=== PATIENT | female | born 1980 | race Caucasian/White ===

== ENCOUNTER 2018-07-16 12:20 | Emergency (ER) | payer BC ==
[2018-07-16] MEDS ORDERED: Zofran 4 MG/2 ML VIAL IV ONE (12:47)
[2018-07-16] MEDS ORDERED: TORAdol 30 mg Injection IV ONE (12:47)
[2018-07-16] MEDS ORDERED: Sodium Chloride 0.9% 1000 ML 1,000 ML IV STA (12:47)
--- NOTE | 2018-07-16 12:55 | ERPHSYRPT ---
- History of Present Illness Time Seen by Provider: 07/16/18 12:37 Source: patient Exam Limitations: no limitations Physician History: 38 y/o obese female with history of fibromyalgia comes to the ER with complaints of occipital headache for the past 6 days. Pt was seen at [facility] and was sent home on motrin and flexeril with no relief. Pt describes the pain as stabbing, constant, 8/10, with radiation down neck and not relieved by motrin. Pt admits to having neck stiffness but denies any fever, chills, blurry vision or double vision, but does admits to photophobia. Pt has also been having occasional episodes of nausea and vomiting. Pt also admits to occasional chest pain. Timing/Duration: day(s) Quality: stabbing Head Pain Location: occipital Severity of Pain-Max: moderate Severity of Pain-Current: moderate Recent Head Trauma: no recent headache/trauma Associated Symptoms: dizziness, nausea/vomiting, neck pain, sensitive to light Previous symptoms: no prior history Allergies/Adverse Reactions: codeine Allergy (Verified 07/16/18 13:07) Home Medications: Cyclobenzaprine HCl 10 mg [Cyclobenzaprine 10 MG] 10 mg PO BID 07/16/18 [ History] Duloxetine HCl 60 mg PO DAILY 07/16/18 [History] Meloxicam 15 mg [Meloxicam 15 MG] 15 mg PO BID 07/16/18 [History] Omeprazole 20 MG [Prilosec 20 mg] 20 mg PO DAILY 07/16/18 [History] Ondansetron ODT 4 MG [Zofran Odt 4 mg] 4 mg PO Q6HPRN PRN 07/16/18 [ History] - Review of Systems Constitutional: No Fever, No Chills Eyes: Photophobia, Vision Changes Ears, Nose, & Throat: No Symptoms Respiratory: No Cough, No Dyspnea Cardiac: Chest Pain, No Edema, No Syncope Abdominal/Gastrointestinal: Nausea, Vomiting, No Abdominal Pain, No Diarrhea Genitourinary Symptoms: No Dysuria Musculoskeletal: No Back Pain, No Neck Pain Skin: No Rash Neurological: Dizziness, Headache, No Focal Weakness, No Sensory Changes Psychological: No Symptoms Endocrine: No Symptoms All Other Systems: Reviewed and Negative - Female History Hx Now: No - Nursing Vital Signs Nursing Vital Signs: Initial Vital Signs Pulse Rate 78 07/16/18 12:21 Respiratory Rate 20 07/16/18 12:21 Blood Pressure 148/86 07/16/18 12:21 O2 Sat by Pulse Oximetry 98 07/16/18 12:21 Pain Scale Pain Intensity 7 - Physical Exam General Appearance: mild distress, obese Eye Exam: photophobia Ears, Nose, Throat Exam: normal ENT inspection, moist mucous membranes Neck Exam: supple, full range of motion, midline tenderness, No non-tender, No meningismus Respiratory Exam: normal breath sounds, lungs clear Cardiovascular Exam: regular rate/rhythm, normal heart sounds Gastrointestinal/Abdominal Exam: soft, No tenderness, No distention Back Exam: normal inspection, normal range of motion Extremity Exam: normal inspection, normal range of motion Mental Status Exam: alert, oriented x 3, cooperative outpatient coding specialist Exam: normal hearing, normal speech, PERRL, No facial droop Coordination/Gait Exam: normal finger to nose, normal gait, normal cerebellar function Motor/Sensory Exam: no motor deficit, no sensory deficit Skin Exam: normal color, warm, dry, No rash SpO2: 98 Oxygen Delivery: Room Air - Course Nursing assessment & vital signs reviewed: Yes EKG Interpreted by Me: RATE, NORMAL AXIS, NORMAL INTERVALS, NORMAL QRS, NORMAL ST-T Ordered Tests: Active Orders 24 hr Category Date Time Status EKG-ER Only STAT Care 07/16/18 12:49 Active IV Insertion STAT Care 07/16/18 12:47 Active HEAD WITHOUT CONTRAST [CT] Stat Exams 07/16/18 12:48 Taken CBC W DIFF Stat Lab 07/16/18 12:55 Completed CMP Stat Lab 07/16/18 12:55 Completed CULTURE,URINE Stat Lab 07/16/18 13:03 Received Erythrocyte Sedimentation Rate Stat Lab 07/16/18 12:55 Completed HCG QUALITATIVE,SERUM Stat Lab 07/16/18 12:55 Completed UA W/ MICROSCOPIC Stat Lab 07/16/18 13:03 Completed Medication Summary Discontinued Medications Generic Name Dose Route Start Last Admin Trade Name Freq PRN Reason Stop Dose Admin Sodium Chloride 1,000 mls @ 999 mls/hr 07/16/18 12:47 07/16/18 13:16 Sodium Chloride 0.9% 1000 Ml IV 07/16/18 13:47 999 mls/hr .Q1H1M STA Administration Sodium Chloride Confirm 07/16/18 13:12 Sodium Chloride 0.9% 1000 Ml Administered 07/16/18 13:13 Dose 1,000 mls @ ud .ROUTE .STK-MED ONE Ketorolac Tromethamine 30 mg 07/16/18 12:47 07/16/18 13:16 Toradol 30 Mg Injection IV 07/16/18 12:48 30 mg STAT ONE Administration Ketorolac Tromethamine Confirm 07/16/18 13:12 Toradol 30 Mg Injection Administered 07/16/18 13:13 Dose 30 mg .ROUTE .STK-MED ONE Morphine Sulfate 4 mg 07/16/18 14:22 07/16/18 14:25 Morphine Sulfate 4 Mg Inj IV 07/16/18 14:23 4 mg STAT ONE Administration Morphine Sulfate Confirm 07/16/18 14:24 Morphine Sulfate 4 Mg Inj Administered 07/16/18 14:25 Dose 4 mg .ROUTE .STK-MED ONE Ondansetron HCl 4 mg 07/16/18 12:47 07/16/18 13:16 Zofran 4 Mg/2 Ml Vial IV 07/16/18 12:48 4 mg STAT ONE Administration Ondansetron HCl Confirm 07/16/18 13:12 Zofran 4 Mg/2 Ml Vial Administered 07/16/18 13:13 Dose 4 mg .ROUTE .STK-MED ONE Promethazine HCl 12.5 mg 07/16/18 14:22 07/16/18 14:26 Phenergan 25 Mg Inj IV 07/16/18 14:23 12.5 mg STAT ONE Administration Promethazine HCl Confirm 07/16/18 14:24 Phenergan 25 Mg Inj Administered 07/16/18 14:25 Dose 25 mg .ROUTE .STK-MED ONE Sumatriptan Succinate 6 mg 07/16/18 14:54 07/16/18 15:03 Imitrex 6 Mg/0.5 Ml SQ 07/16/18 14:55 6 mg STAT STA Administration Sumatriptan Succinate Confirm 07/16/18 15:02 Imitrex 6 Mg/0.5 Ml Administered 07/16/18 15:03 Dose 6 mg SQ .STK-MED ONE Lab/Rad Data: Laboratory Result Diagrams 07/16/18 12:55 07/16/18 12:55 Laboratory Results 07/16/18 07/16/18 07/16/18 Range/Units 13:03 12:55 12:55 WBC (4.0-10.5) K/mm3 RBC (4.1-5.4) M/mm3 Hgb (12.0-16.0) gm/dl Hct (35-47) % MCV (78-100) fl MCH (26-32) pg MCHC (32-36) g/dl RDW (11.5-14.0) % Plt Count (150-450) K/mm3 MPV (6-9.5) fl Gran % (36.0-66.0) % Eos # (Auto) (0-0.5) Absolute Lymphs (auto) (1.0-4.6) Absolute Monos (auto) (0.0-1.3) Lymphocytes % (24.0-44.0) % Monocytes % (0.0-12.0) % Eosinophils % (0.00-5.0) % Basophils % (0.0-0.4) % Absolute Granulocytes (1.4-6.9) Basophils # (0-0.4) ESR (0-20) mm/hr Sodium 140 (137-145) mmol/L Potassium 3.9 (3.5-5.1) mmol/L Chloride 104 (98-107) mmol/L Carbon Dioxide 27 (22-30) mmol/L Anion Gap 13.5 (5-15) MEQ/L BUN 16 (7-17) mg/dL Creatinine 0.74 (0.52-1.04) mg/dL Estimated GFR > 60.0 ML/MIN Glucose 97 (74-106) mg/dL Calcium 9.2 (8.4-10.2) mg/dL Total Bilirubin 0.60 (0.2-1.3) mg/dL AST 40 H (14-36) U/L ALT 60 H (0-35) U/L Alkaline Phosphatase 85 (38-126) U/L Serum Total Protein 7.8 (6.3-8.2) g/dL Albumin 4.6 (3.5-5.0) g/dL Serum , Qual NEGATIVE (Negative) Ur Collection Type VOID Urine Color YELLOW (YELLOW) Urine Appearance CLEAR (CLEAR) Urine pH 5.0 (5-6) Ur Specific [place] 1.015 (1.005-1.025) Urine Protein NEGATIVE (Negative) Urine Ketones NEGATIVE (NEGATIVE) Urine Blood 50 (0-5) James/ul Urine Nitrite NEGATIVE (NEGATIVE) Urine Bilirubin NEGATIVE (NEGATIVE) Urine Urobilinogen NORMAL (0-1) mg/dL Ur Leukocyte Esterase 2+ (NEGATIVE) Urine Microscopic RBC 0-2 (0-2) /HPF Urine Microscopic WBC 10-15 (0-5) /HPF Ur Epithelial Cells FEW (FEW) /HPF Urine Bacteria FEW (NEGATIVE) /HPF Urine Culture Reflexed YES (NO) Urine Glucose NEGATIVE (NEGATIVE) mg/dL Specimen Received 07/16/18 1308 07/16/18 Range/Units 12:55 WBC 10.9 H (4.0-10.5) K/mm3 RBC 4.52 (4.1-5.4) M/mm3 Hgb 14.3 (12.0-16.0) gm/dl Hct 42.5 (35-47) % MCV 94.0 (78-100) fl MCH 31.6 (26-32) pg MCHC 33.6 (32-36) g/dl RDW 13.5 (11.5-14.0) % Plt Count 271 (150-450) K/mm3 MPV 9.9 H (6-9.5) fl Gran % 59.3 (36.0-66.0) % Eos # (Auto) 0.20 (0-0.5) Absolute Lymphs (auto) 3.44 (1.0-4.6) Absolute Monos (auto) 0.79 (0.0-1.3) Lymphocytes % 31.4 (24.0-44.0) % Monocytes % 7.2 (0.0-12.0) % Eosinophils % 1.8 (0.00-5.0) % Basophils % 0.3 (0.0-0.4) % Absolute Granulocytes 6.48 (1.4-6.9) Basophils # 0.03 (0-0.4) ESR 18 (0-20) mm/hr Sodium (137-145) mmol/L Potassium (3.5-5.1) mmol/L Chloride (98-107) mmol/L Carbon Dioxide (22-30) mmol/L Anion Gap (5-15) MEQ/L BUN (7-17) mg/dL Creatinine (0.52-1.04) mg/dL Estimated GFR ML/MIN Glucose (74-106) mg/dL Calcium (8.4-10.2) mg/dL Total Bilirubin (0.2-1.3) mg/dL AST (14-36) U/L ALT (0-35) U/L Alkaline Phosphatase (38-126) U/L Serum Total Protein (6.3-8.2) g/dL Albumin (3.5-5.0) g/dL Serum , Qual (Negative) Ur Collection Type Urine Color (YELLOW) Urine Appearance (CLEAR) Urine pH (5-6) Ur Specific [place] (1.005-1.025) Urine Protein (Negative) Urine Ketones (NEGATIVE) Urine Blood (0-5) James/ul Urine Nitrite (NEGATIVE) Urine Bilirubin (NEGATIVE) Urine Urobilinogen (0-1) mg/dL Ur Leukocyte Esterase (NEGATIVE) Urine Microscopic RBC (0-2) /HPF Urine Microscopic WBC (0-5) /HPF Ur Epithelial Cells (FEW) /HPF Urine Bacteria (NEGATIVE) /HPF Urine Culture Reflexed (NO) Urine Glucose (NEGATIVE) mg/dL Specimen Received - Progress Progress: improved Progress Note: 07/16/18 15:[address] scan head does not show any acute findings. The labs are within normal limits. The patient has no relief after receiving toradol, minimal relief after morphine and some more relief after receiving imitrex. The patient will be sent home on percocet and will be referred to neurology. - Departure Time of Disposition: 15:36 Departure Disposition: Home Clinical Impression: Headache Qualifiers: Headache type: unspecified Headache chronicity pattern: acute headache Intractability: not intractable Qualified Code(s): R51 - Headache Condition: Stable Critical Care Time: No Referrals: MORIAH LESTER DO [NON-STAFF PHY W/O PRIVILEGES] - Instructions: Headache, Adult (DC) Additional Instructions: Return to the ER if you should continue to have headaches, neck pain, nausea, vomiting, fever or chills. Follow up with Dr Anaya in the next few days. Prescriptions: Ondansetron [Zofran Odt] 4 mg PO QID PRN #16 tab.rapdis PRN Reason: Nausea/Vomiting Oxycodone HCl/Acetaminophen [Percocet 5-325 mg Tablet] 1 each PO QID PRN #16 tablet MDD 4 PRN Reason: Pain
[2018-07-16 13:03] LABS: BASOPHIL % 0.3 % (0.0-0.4); Basophil (Absolute #) 0.03 (0-0.4); Eosinophil % 1.8 % (0.00-5.0); Granulocyte Absolute (ANC) 6.48 (1.4-6.9); Granulocytes % 59.3 % (36.0-66.0); Hematocrit 42.5 % (35-47); Hemoglobin 14.3 gm/dl (12.0-16.0); Lymphocyte (Absolute #) 3.44 (1.0-4.6); Lymphocytes % 31.4 % (24.0-44.0); Mean Corpuscular Hemoglobin 31.6 pg (26-32); Mean Corpuscular Hgb Concent. 33.6 g/dl (32-36); Mean Platelet Volume 9.9 fl (6-9.5); Monocyte (Absolute #) 0.79 (0.0-1.3); Monocytes % 7.2 % (0.0-12.0); Platelet Count 271 K/mm3 (150-450); Red Blood Count 4.52 M/mm3 (4.1-5.4); Red Cell Distribution Width 13.5 % (11.5-14.0); White Blood Count 10.9 K/mm3 (4.0-10.5)
[2018-07-16 13:08] LABS: Appearance CLEAR (CLEAR); Bilirubin NEGATIVE (NEGATIVE); Blood 50 Ery/ul (0-5); Glucose NEGATIVE (NEGATIVE); Ketones NEGATIVE (NEGATIVE); Leukocyte Esterase 2+ (NEGATIVE); Nitrite NEGATIVE (NEGATIVE); Protein,Urine Dip NEGATIVE (Negative); Specific Gravity 1.015 (1.005-1.025); Urobilinogen NORMAL mg/dL (0-1)
[2018-07-16] MEDS ORDERED: Zofran 4 MG/2 ML VIAL ONE (13:12)
[2018-07-16] MEDS ORDERED: TORAdol 30 mg Injection ONE (13:12)
[2018-07-16] MEDS ORDERED: Sodium Chloride 0.9% 1000 ML 1,000 ML ONE (13:12)
[2018-07-16 13:17] LABS: Bacteria FEW /HPF (NEGATIVE); Epithelial Cells FEW /HPF (FEW); RBC 0-2 /HPF (0-2)
[2018-07-16 13:21] LABS: ALBUMIN 4.6 g/dL (3.5-5.0); ALKALINE PHOSPHATASE 85 U/L (38-126); ANION GAP 13.5 MEQ/L (5-15); BLOOD UREA NITROGEN 16 mg/dL (7-17); CHLORIDE 104 mmol/L (98-107); Calcium 9.2 mg/dL (8.4-10.2); Carbon Dioxide 27 mmol/L (22-30); Creatinine 1 0.74 mg/dL (0.52-1.04); Erythrocyte Sedimentation Rate 18 mm/hr (0-20); Glucose 97 mg/dL (74-106); Potassium 3.9 mmol/L (3.5-5.1); SGOT/AST 40 U/L (14-36); SGPT/ALT 60 U/L (0-35); SODIUM 140 mmol/L (137-145); Total Protein 7.8 g/dL (6.3-8.2)
[2018-07-16] MEDS ORDERED: MORPHINE SULFATE 4 MG INJ IV ONE (14:22)
[2018-07-16] MEDS ORDERED: Phenergan 25 MG INJ IV ONE (14:22)
[2018-07-16] MEDS ORDERED: Phenergan 25 MG INJ ONE (14:24)
[2018-07-16] MEDS ORDERED: MORPHINE SULFATE 4 MG INJ ONE (14:24)
[2018-07-16] MEDS ORDERED: Imitrex 6 MG/0.5 ML SQ STA (14:54)
[2018-07-16] MEDS ORDERED: Imitrex 6 MG/0.5 ML SQ ONE (15:02)
[2018-07-16 16:06] VITALS: BP 117/72; PULSE 65; O2SAT 96
--- NOTE | 2018-07-17 08:01 | XRAY ---
Indication: Posterior headache, nausea, vomiting, and light/noise sensitivity. Multiple contiguous axial images obtained through the head without contrast. Comparison: None Normal appearing brain parenchyma, ventricles, and bony calvarium. Visualized paranasal sinuses and mastoid air cells are clear. Impression: Normal CT head without contrast exam. Comment: Preliminary interpretation was made by [facility]. No discrepancy. CTDI 68.32
== END 2018-07-16 16:05 | disposition home or self-care (01) ==
LOC: ED 12:20
DX: R51 Headache (principal); R11.2 Nausea with vomiting, unspecified; Z79.899 Other long term (current) drug therapy
CPT/HCPCS: 36000; 36415; 70450; 80053; 81000; 84703; 85025; 85652; 87086; 93005; 96360; 96372; 96374; 96375; 99284; 99285; J1885; J2270; J2405; J2550; J3030